=== PATIENT | male | born 1965 | race Caucasian/White ===

== ENCOUNTER → 2017-02-23 | Outpatient (CLI) | payer OTHER | LOC: EMI 13:45 | DX: M54.12 Radiculopathy, cervical region (principal); M54.16 Radiculopathy, lumbar region; M50.321 Other cervical disc degeneration at C4-C5 level; M48.02 Spinal stenosis, cervical region; M51.26 Other intervertebral disc displacement, lumbar region; M51.27 Other intervertebral disc displacement, lumbosacral region; M48.06 Spinal stenosis, lumbar region | CPT/HCPCS: 72141; 72148 ==

== ENCOUNTER → 2017-02-25 | Outpatient (CLI) | payer OTHER | LOC: ECHO 02-11 11:00 | DX: I10 Essential (primary) hypertension (principal); R07.9 Chest pain, unspecified; R06.00 Dyspnea, unspecified; R42 Dizziness and giddiness; I34.0 Nonrheumatic mitral (valve) insufficiency | CPT/HCPCS: ECHO; 93306 ==

== ENCOUNTER 2021-01-10 11:25 | Emergency (ER) | payer OTHER ==
[~2021-01-10 11:25] MED LIST: COLCHICINE 0.60.6 MG PO; CYMBALTA60 MG PO; GABAPENTIN600 MG PO; IBUPROFEN800 MG PO; INDOCIN 50 MG C50 MG PO; MICROZIDE12.5 MG PO; NORVASC 5 MG TAB5 MG PO; Voltaren Gel 1% TOP; ZANAFLEX4 MG PO; ZYLOPRIM 100 M100 MG PO
== END 2021-01-10 16:25 | disposition home or self-care (01) ==
LOC: ER1 11:25
DX: S50.02XA Contusion of left elbow, initial encounter (principal); S80.12XA Contusion of left lower leg, initial encounter; S80.11XA Contusion of right lower leg, initial encounter; S60.212A Contusion of left wrist, initial encounter; S60.221A Contusion of right hand, initial encounter; M54.6 Pain in thoracic spine; I10 Essential (primary) hypertension; Z88.5 Allergy status to narcotic agent; V49.40XA Driver injured in collision with unspecified motor vehicles in traffic accident, initial encounter; Y92.410 Unspecified street and highway as the place of occurrence of the external cause
CPT/HCPCS: 72072; 72100; 73080; 99283

== ENCOUNTER → 2021-01-24 | Outpatient (CLI) | payer OTHER | LOC: RAD 10:19 | DX: M54.2 Cervicalgia (principal); M50.322 Other cervical disc degeneration at C5-C6 level; M50.323 Other cervical disc degeneration at C6-C7 level; V89.2XXA Person injured in unspecified motor-vehicle accident, traffic, initial encounter | CPT/HCPCS: 72050 ==